=== PATIENT | female | born 1990 | race Caucasian/White ===

== ENCOUNTER 2019-08-08 10:04 | Emergency (ER) | payer OTHER ==
[2019-08-08 10:12] VITALS: TEMP 98.2; BMI 30.2
--- NOTE | 2019-08-08 11:02 | PDOC ---
History of Present Illness - General Chief Complaint: Vaginal Bleeding Stated Complaint: VAGINAL BLEEDING Time Seen by Provider: 08/08/19 10:42 History Source: Patient Exam Limitations: No Limitations - History of Present Illness Travel History: No Initial Comments: 08/08/19 10: [age]-year-old for presents to ED with vaginal spotting for the past 3 days along with left suprapubic cramping. Patient states is currently but unsure of gestational age. Patient LMP 06/09/19. patient with history of methotrexate injections left ectopic in 2017 requiring Methergine. Patient has mild left suprapubic mid suprapubic cramping. No other complaints. Timing/Duration: reports: constant Quality: reports: mild, cramping Abdominal Pain Onset Location: reports: suprapubic Pain Radiation: reports: no radiation Activities at Onset: reports: none Aggravating Factors: improves with: None Alleviating Factors: improves with: None Past History - Travel Traveled outside of the country in the last 30 days: No Close contact w/someone who was outside of country & ill: No - Past Medical History Allergies/Adverse Reactions: Allergies Allergy/AdvReac Type Severity Reaction Status Date / Time No Known Allergies Allergy Verified 08/08/19 10:10 Home Medications: Ambulatory Orders NK [No Known Home Medication] 08/08/19 COPD: No - Surgical History Abdominal Surgery: Yes (ectopic 2016) - Psycho Social/Smoking Cessation Hx Smoking History: Never smoked Patient Lives Alone: No Lives with/in: spouse/SO Review of Systems - Review of Systems Able to Perform ROS?: Yes Constitutional: No: Symptoms Reported ABD/GI: Yes: Abdominal cramping (left suprapubic) : Yes: Discharge (vag bleeding) Musculoskeletal: No: Symptoms Reported Integumentary: No: Symptoms Reported Neurological: No: Symptoms reported Endocrine: No: Symptoms Reported *Physical Exam - Vital Signs Last Vital Signs Temp Pulse Resp BP Pulse Ox 98.2 F 82 16 128/69 99 08/08/19 10:11 08/08/19 10:11 08/08/19 10:11 08/08/19 10:11 08/08/19 10:11 - Physical Exam General Appearance: Yes: Nourished, Appropriately Dressed. No: Apparent Distress HEENT: negative: Pale Conjunctivae Cardiovascular: positive: Regular Rhythm, Regular Rate. negative: Murmur Female Pelvic Exam: positive: vaginal bleeding (Scant red no clots) Gastrointestinal/Abdominal: positive: Soft, Tenderness (Left suprapubic) Integumentary: positive: Normal Color, Warm, Moist Neurologic: positive: Normal Mood/Affect, Motor Strength 5/5 (Ambulatory) ED Treatment Course - LABORATORY CBC & Chemistry Diagram: 08/08/19 11:04 08/08/19 11:04 - RADIOLOGY Radiology Studies Ordered: Category Date Time Status TRANSVAGINAL US PREG [US] Stat Ultrasound 08/08/19 10:56 Ordered Medical Decision Making - Medical Decision Making 08/08/19 11:04 Chief complaint: Vaginal spotting for the past 3 days associated with left suprapubic cramping. Patient with history of ectopic 2017 requiring IM injections. Patient has no other complaints at this time. LMP 06/09/2019 with positive home test and ultrasound done for this Exam: Left suprapubic tenderness. Mild vaginal bleeding Vital signs stable Plan: Labs, urine ultrasound ordered 08/08/19 12:04 Laboratory Tests 08/08/19 08/08/19 08/08/19 11:04 11:04 11:04 WBC 7.3 Hgb 12.9 Hct 38.5 Absolute Neuts (auto) 3.9 Sodium 139 Potassium 3.5 Chloride 107 Carbon Dioxide 26 Anion Gap 6 L BUN 8.3 Creatinine 0.5 L Random Glucose 85 AST 7 L ALT 18 Beta HCG, Quant Pending Urine Blood Urine Nitrite Ur Leukocyte Esterase Urine WBC (Auto) Urine RBC (Auto) Blood Type Antibody Screen 08/08/19 08/08/19 11:04 11:04 WBC Hgb Hct Absolute Neuts (auto) Sodium Potassium Chloride Carbon Dioxide Anion Gap BUN Creatinine Random Glucose AST ALT Beta HCG, Quant Urine Blood 3+ H Urine Nitrite Negative Ur Leukocyte Esterase Negative Urine WBC (Auto) 1 Urine RBC (Auto) 31 Blood Type Pending Antibody Screen Pending Ultrasound results pending 08/08/19 12:26 Ultrasound shows a single intrauterine gestational sac identified with a probable pole noted which ultrasound measures to equal 6 weeks 0 days. However no heart rate is identified. Pain no adnexal masses free fluid. Patient with a 1 cm simple cyst of the left ovary. Recommend clinical correlation including ultrasound and beta hCG. 08/08/19 12:44 Laboratory Tests 08/08/19 08/08/19 11:04 11:04 Beta HCG, Quant 956.7 Blood Type O POSITIVE Antibody Screen Negative Discharge - Discharge Information Problems reviewed: Yes Clinical Impression/Diagnosis: Threatened Condition: Good Disposition: HOME - Follow up/Referral - Patient Discharge Instructions Patient Printed Discharge Instructions: DI for Threatened Additional Instructions: Please follow-up with your [facility]OCI[facility] and/or return to ED in 48 hours for repeat blood work and/or ultrasound. May take Tylenol for discomfort. - Post Discharge Activity
[2019-08-08 11:28] LABS: BASO % 0.6 % (0-2.0); EOS % 3.3 % (0-4.5); HEMATOCRIT 38.5 % (32.4-45.2); HEMOGLOBIN 12.9 GM/dL (10.7-15.3); LYMPH % 37.8 % (8-40); MCH 28.4 pg (25.7-33.7); MCHC 33.4 g/dl (32.0-36.0); MEAN CELL VOLUME 85.2 fl (80-96); MEAN PLT VOLUME 7.7 fl (7.5-11.1); MONO % 4.7 % (3.8-10.2); NEUT % 53.6 % (42.8-82.8); PLATELET COUNT 195 K/MM3 (134-434); RBC 4.52 M/mm3 (3.60-5.2); RDW 13.8 % (11.6-15.6); WHITE BLOOD COUNT 7.3 K/mm3 (4.0-10.0)
[2019-08-08 11:47] LABS: EPI CELLS 1.3 /HPF (0-5/HPF); HYALINE CASTS 0 /lpf (0-8); URINE APPEARANCE CLEAR; URINE BACTERIA 42.1 /hpf (NEGATIVE); URINE BILIRUBIN NEGATIVE (NEGATIVE); URINE COLOR YELLOW; URINE GLUCOSE (UA) NEGATIVE (NEGATIVE); URINE KETONE NEGATIVE (NEGATIVE); URINE LEUK ESTERASE NEGATIVE (NEGATIVE); URINE NITRITE NEGATIVE (NEGATIVE); URINE PROTEIN NEGATIVE (NEGATIVE); URINE RBC 31 /hpf (0-4); URINE UROBILINOGEN 0.2 mg/dL (0.2-1.0); URINE WBC 1 /hpf (0-5)
[2019-08-08 11:54] LABS: ALBUMIN 3.8 g/dl (3.4-5.0); BILIRUBIN,TOTAL 0.5 mg/dL (0.2-1); BLOOD UREA NITROGEN 8.3 mg/dL (7-18); CALCIUM 9.3 mg/dL (8.5-10.1); CREATININE 0.5 mg/dL (0.55-1.3); POTASSIUM 3.5 mmol/L (3.5-5.1); TOT PROT 7.2 g/dl (6.4-8.2)
[2019-08-08 12:42] VITALS: BP 111/74; PULSE 70
== END 2019-08-08 12:56 | disposition home or self-care (01) ==
LOC: JER 10:04
DX: O26.891 Other specified pregnancy related conditions, first trimester (principal); O20.0 Threatened abortion; Z3A.01 Less than 8 weeks gestation of pregnancy
CPT/HCPCS: 36415; 76817-TC; 80053; 81003; 84702; 85025; 86850; 86900; 86901; 87086; 99282-25

== ENCOUNTER 2020-06-09 16:48 | Emergency (ER) | payer OTHER ==
[2020-06-09 17:00] VITALS: BP 122/76; PULSE 86; TEMP 98.8; BMI 31.1
--- NOTE | 2020-06-09 17:51 | PDOC ---
History of Present Illness - General Chief Complaint: Pain Stated Complaint: 4 WEEKS /ABDOMINAL PAIN Time Seen by Provider: 06/09/20 17:10 History Source: Patient Exam Limitations: No Limitations - History of Present Illness Initial Comments: 06/09/20 17:47 Patient is a 29-year-old female who presents to the ED with complaint of lower abdominal pain that started today. The patient states that she took 2 home tests which were positive so she came to the ED for evaluation. She is with 1 miscarriage in 2019 and one ectopic treated with me thotrexate in 2017. She states the ectopic was on the right but her tube was salvaged. She denies any dysuria or hematuria. She denies any vaginal bleeding. The patient states she was concerned because of her previous history. She states she is trying to get . She states her last period was on 05/12/2020. Past History - Medical History Allergies/Adverse Reactions: Allergies Allergy/AdvReac Type Severity Reaction Status Date / Time No Known Allergies Allergy Verified 06/09/20 16:55 Home Medications: Ambulatory Orders NK [No Known Home Medication] 08/08/19 COPD: No - Surgical History Abdominal Surgery: Yes (ectopic 2016) - Reproductive History Is Patient Now?: Yes (#): 2 Para: 0 Ectopic : Yes (2016) - Psycho-Social/Smoking History Smoking History: Never smoked Have you smoked in the past 12 months: No - Substance Abuse Hx (Audit-C & DAST Scrn) How often the patient has a drink containing alcohol: Monthly or less Number of drinks the patient has on a typical day: 1 or 2 How often the patient has six or more drinks on one occasion: Never Score: In Men: 4 or > Positive; In Women: 3 or > Positive: 1 Screen Result (Pos requires Nsg. Audit-10AR): Negative In the last yr the pt used illegal drug/Rx for NonMed reason: No Score: Yes response is considered Positive: 0 Screen Result (Positive result requires Nsg. DAST-10): Negative Review of Systems - Review of Systems Comments:: 06/09/20 17:49 - Review of Systems Able to Perform ROS?: Yes Constitutional: No: Fever, Chills, Loss of Appetite, Night Sweats, Weakness HEENTM: No: Eye Pain, Vision changes, Ear Pain, Throat Pain, Throat Swelling, Mouth Pain, Difficulty Swallowing Respiratory: No: Cough, Shortness of Breath, Wheezing, Sputum Production Cardiac (ROS): No: Chest Pain, Chest Tightness, Palpitations, Irregular Heart Beat, Edema ABD/GI: No: Nausea, Vomiting, Abdominal Pain, Diarrhea; positive: Lower abdominal pain with a positive test at home : No Dysuria, No Hematuria, No Frequency, No Urgency Musculoskeletal: No: Muscle Pain, Back Pain, Joint Pain, Muscle Weakness, Neck Pain Integumentary: No: Lesions, Rash Neurological: No: Headache, Numbness, Tingling, Weakness, Speech Difficulties *Physical Exam - Vital Signs Last Vital Signs Temp Pulse Resp BP Pulse Ox 98.8 F 86 18 122/76 100 06/09/20 16:55 06/09/20 16:55 06/09/20 16:55 06/09/20 16:55 06/09/20 16:55 - Physical Exam 06/09/20 17:50 - Physical Exam General Appearance: Nourished, Appropriately Dressed, No Distress HEENT: EOMI, Normal Voice, Hearing Grossly Normal Neck: Supple, No Lymphadenopathy (R), No Lymphadenopathy (L), No Rigidity, No Decreased range of motion Respiratory/Chest: Lungs Clear, Normal Breath Sounds. No Respiratory Distress, No Accessory Muscle Use Cardiovascular: Regular Rhythm, Regular Rate, S1, S2 Gastrointestinal/Abdominal: Normal Bowel Sounds, Soft. Non-tender, No Guarding, No Rebound, No Rigidity; no reproducible abdominal tenderness to palpation FURNACE CLERK: No blood appreciated in the vaginal vault. Os closed. No CMT. Mild suprapubic tenderness on bimanual exam without masses palpated. Adnexa nontender nonpalpable. Musculoskeletal: Normal Inspection. No Decreased Range of Motion Extremity: Normal Capillary Refill, Normal Inspection Integumentary: Normal Color, Dry. No Rash Neurologic: consumer recruiter II-XII NML intact, Fully Oriented, Alert, Normal Mood/Affect, Normal Response ED Treatment Course - LABORATORY CBC & Chemistry Diagram: 06/09/20 20:10 06/09/20 20:10 - ADDITIONAL ORDERS Additional order review: 06/09/20 19:18 Laboratory Tests 06/09/20 17:33 Urine Color Yellow Urine Appearance Clear Urine pH 8.0 D Ur Specific [place] 1.021 Urine Protein Negative Urine Glucose (UA) Negative Urine Ketones Trace H Urine Blood Negative Urine Nitrite Negative Urine Bilirubin Negative Urine Urobilinogen 1.0 Ur Leukocyte Esterase Negative Urine HCG, Qual Positive 06/09/20 21:15 Laboratory Tests 06/09/20 20:10 Beta HCG, Quant 269.9 Medical Decision Making - Medical Decision Making 06/09/20 17:50 Assessment: Patient is a 29-year-old female with lower abdominal pain with 2 positive tests today. Plan: -We will first confirm with a urine test -UA/urine culture/urine hCG -Will reassess 06/09/20 19:18 The patient has been made aware that her urinalysis is negative and her urine is positive. We will continue her work-up with lab works and an ultrasound for further evaluation and treatment. 06/09/20 20:29 Patient's ultrasound reads there is a fluid-filled structure in the uterus consistent with a gestational sac but no other signs of pole or yolk sac appreciated. The patient is pending her lab work. She is stable and has no complaints at this time. 06/09/20 21:13 The patient has been made aware that her beta-hCG is 269.9. She is also been made aware that this is too early to see anything on the ultrasound. The patient has been made aware that the ultrasound shows what appears to be a gestational sac which is very small. She is advised to return to the emergency department in 2 days to have only a repeat hormone level. She does not require a repeat ultrasound in 2 days. Discharge - Discharge Information Problems reviewed: Yes Clinical Impression/Diagnosis: Abdominal pain affecting Condition: Stable Disposition: HOME - Follow up/Referral Referrals: Liban Monet MD [Staff Physician] - Call tomorrow - Patient Discharge Instructions Patient Printed Discharge Instructions: DI for Abdominal Pain -- Early Additional Instructions: Get plenty of rest and drink plenty of fluids. Avoid any heavy lifting or strenuous activity. Avoid anything in the vagina including sexual intercourse until you are cleared by [facility]. You must return to the emergency department in 2 days for repeat hormone level. You do not require a repeat ultrasound in 2 days. Follow-up with [facility] early next week. - Post Discharge Activity Work/Back to School Note: Back to Work
[2020-06-09 18:37] LABS: URINE APPEARANCE CLEAR; URINE BILIRUBIN NEGATIVE (NEGATIVE); URINE COLOR YELLOW; URINE GLUCOSE (UA) NEGATIVE (NEGATIVE); URINE KETONE TRACE (NEGATIVE); URINE LEUK ESTERASE NEGATIVE (NEGATIVE); URINE NITRITE NEGATIVE (NEGATIVE); URINE PROTEIN NEGATIVE (NEGATIVE)
[2020-06-09] MEDS ORDERED: SODIUM CHLORIDE 1,000 ML IV STA (18:57)
[2020-06-09 20:22] LABS: BASO % 0.5 % (0-2.0); EOS % 1.2 % (0-4.5); HEMATOCRIT 42.3 % (32.4-45.2); HEMOGLOBIN 14.1 GM/dL (10.7-15.3); MCH 28.1 pg (25.7-33.7); MCHC 33.3 g/dl (32.0-36.0); MEAN CELL VOLUME 84.2 fl (80-96); MEAN PLT VOLUME 8.1 fl (7.5-11.1); MONO % 4.6 % (3.8-10.2); NEUT % 65.7 % (42.8-82.8); PLATELET COUNT 235 K/MM3 (134-434); RBC 5.03 M/mm3 (3.60-5.2); WHITE BLOOD COUNT 10.8 K/mm3 (4.0-10.0)
[2020-06-09 20:52] LABS: BILIRUBIN,TOTAL 0.5 mg/dL (0.2-1); BLOOD UREA NITROGEN 13.3 mg/dL (7-18); CREATININE 0.7 mg/dL (0.55-1.3); POTASSIUM 4.2 mmol/L (3.5-5.1); TOT PROT 8.1 g/dl (6.4-8.2)
--- OUTSIDE RECORDS SUMMARY | 2020-06-09 21:58 | XMS ---
:1990 Author Organization [facility] Support Name Relationship Address Phone SE, SELF-EMPLOYED Unavailable Unavailable Unavailable SE Unavailable Unavailable Unavailable BRIANNA CRAIG FATHER [address] [place] [address] Re-disclosure Warning The records that you are about to access may contain information from federally- assisted alcohol or drug abuse programs. If such information is present, then the following federally mandated warning applies: This information has been disclosed to you from records protected by federal confidentiality rules (42 CFR part 2). The federal rules prohibit you from making any further disclosure of this information unless further disclosure is expressly permitted by the written consent of the person to whom it pertains or as otherwise permitted by 42 CFR part 2. A general authorization for the release of medical or other information is NOT sufficient for this purpose. The Federal rules restrict any use of the information to criminally investigate or prosecute any alcohol or drug abuse patient.The records that you are about to access may contain highly sensitive health information, the redisclosure of which is protected by Article 27-F of the [facility] Public Health law. If you continue you may haveaccess to information: Regarding HIV / AIDS; Provided by facilities licensed or operated by the [facility] Office of Mental Health; or Provided by the [facility] Office for People With Developmental Disabilities. If such information is present, then the following [facility] mandated warning applies: This information has been disclosed to you from confidential records which are protected by state law. State law prohibits you from making any further disclosure of this information without the specific written consent of the person to whom it pertains, or as otherwise permitted by law. Any unauthorized further disclosure in violation of state law may result in a fine or snf sentence or both. A general authorization for the release of medical or other information is NOT sufficient authorization for further disclosure. Insurance Providers Payer name Policy type Policy ID Covered Covered libertarian's Policy P demond / Coverage libertarian ID relationship to Smith Inf ormation type smith AFFINITY [id number] MARLENA [id number] 000 HEALTH NON CAP Problems, Conditions, and Diagnoses Code Display Name Description Problem Type Effective Data Sour ce(s) Dates 616.10 VAGINITIS AND VAGINITIS Diagnosis 11/11/2018 JANIE (Gadiel alejandro VULVOVAGINITIS 10:07:52 AM Tony UNSPECIFIED [facility]) 079.98 UNSPECIFIED Chlamydial Diagnosis 11/11/2018 JANIE (Meaghan nt CHLAMYDIAL Infection NOS 10:07:52 AM Tony INFECTION [facility])
[2020-06-10 02:20] LABS: HCG,QUALITATIVE URINE Positive
== END 2020-06-09 21:30 | disposition home or self-care (01) ==
LOC: JER 16:48
PROC: 3E0337Z Introduction of Electrolytic and Water Balance Substance into Peripheral Vein, Percutaneous Approach (ICD-10-PCS; principal; 2020-06-09)
DX: O26.891 Other specified pregnancy related conditions, first trimester (principal)
CPT/HCPCS: 36415; 76817-TC; 80053; 81003; 84702; 84703; 85025; 86850; 86900; 86901; 87086; 87186; 99284-25

== ENCOUNTER 2020-06-11 17:11 | Emergency (ER) | payer OTHER ==
--- OUTSIDE RECORDS SUMMARY | 2020-06-11 17:22 | XMS ---
:1990 Author Organization [facility] Support Name Relationship Address Phone SE, SELF-EMPLOYED Unavailable Unavailable Unavailable SE Unavailable Unavailable Unavailable BRIANNA CRAIG STEP FATHER [address] [place] [address] BRIANNA CRAIG Other [address] [place] [address] Re-disclosure Warning The records that you are [...] is protected by Article 27-F of the [facility] Public Health law. If you continue you may haveaccess to information: Regarding HIV / AIDS; Provided by facilities licensed or operated by the [facility] Office of Mental Health; or Provided by the [facility] Office for People With Developmental Disabilities. If such information is present, then the following [facility] mandated warning applies: This information has [...] law may result in a fine or senior living sentence or both. A general authorization for the release of medical or other information is NOT sufficient authorization for further disclosure. Insurance Providers Payer name Policy type Policy ID Covered Covered democrat's Policy P demond / Coverage democrat ID relationship to Smith Inf ormation type smith AFFINITY [id number] 401 [facility] [id number] 000 HEALTH NON CAP Problems, Conditions, and Diagnoses Code Display Name Description Problem Type Effective Data Sour ce(s) Dates 616.10 VAGINITIS AND VAGINITIS Diagnosis 11/11/2018 JANIE (Gadiel alejandro VULVOVAGINITIS 10:07:52 AM Tony UNSPECIFIED [facility]) 079.98 UNSPECIFIED Chlamydial Diagnosis 11/11/2018 JANIE (Meaghan nt CHLAMYDIAL Infection NOS 10:07:52 AM Tnoy INFECTION [facility])
[2020-06-11 17:25] VITALS: BP 113/74; PULSE 84; TEMP 98.1; BMI 31.1
--- NOTE | 2020-06-11 17:31 | PDOC ---
History of Present Illness - General Chief Complaint: Revisit, Lab Variance Stated Complaint: LABS Time Seen by Provider: 06/11/20 17:23 History Source: Patient Exam Limitations: No Limitations - History of Present Illness Initial Comments: 06/11/20 17:26 Patient is a 29-year-old female who presents to the ED for repeat beta-hCG. She was seen 2 days ago and found to have a beta-hCG of 269. The patient had an ultrasound which showed a small structure in the uterus consistent with an early gestational sac. She states that the pain she was having 2 days ago has resolved. She denies any vaginal bleeding. She denies any fevers or chills. She denies any other complaints today. The patient is . She has had 1 miscarriage and 1 ectopic requiring methotrexate treatment. Past History - Medical History Allergies/Adverse Reactions: Allergies Allergy/AdvReac Type Severity Reaction Status Date / Time No Known Allergies Allergy Verified 06/09/20 16:55 Home Medications: Ambulatory Orders NK [No Known Home Medication] 08/08/19 COPD: No - Surgical History Abdominal Surgery: Yes (ectopic 2016) - Reproductive History Is Patient Now?: Yes (#): 2 Para: 0 Ectopic : Yes (2017) - Psycho-Social/Smoking History Smoking History: Never smoked Have you smoked in the past 12 months: No - Substance Abuse Hx (Audit-C & DAST Scrn) How often the patient has a drink containing alcohol: Never Score: In Men: 4 or > Positive; In Women: 3 or > Positive: 0 Screen Result (Pos requires Nsg. Audit-10AR): Negative Review of Systems - Review of Systems Comments:: 06/11/20 17:30 - Review of Systems Able to Perform ROS?: Yes Constitutional: No: Fever, Chills, Loss of Appetite, Night Sweats, Weakness; positive: Repeat beta-hCG quantitative HEENTM: No: Eye Pain, Vision changes, Ear Pain, Throat Pain, Throat Swelling, Mouth Pain, Difficulty Swallowing Respiratory: No: Cough, Shortness of Breath, Wheezing, Sputum Production Cardiac (ROS): No: Chest Pain, Chest Tightness, Palpitations, Irregular Heart Beat, Edema ABD/GI: No: Nausea, Vomiting, Abdominal Pain, Diarrhea : No Dysuria, No Hematuria, No Frequency, No Urgency Musculoskeletal: No: Muscle Pain, Back Pain, Joint Pain, Muscle Weakness, Neck Pain Integumentary: No: Lesions, Rash Neurological: No: Headache, Numbness, Tingling, Weakness, Speech Difficulties *Physical Exam - Vital Signs Last Vital Signs Temp Pulse Resp BP Pulse Ox 98.1 F 84 20 113/74 100 06/11/20 17:14 06/11/20 17:14 06/11/20 17:14 06/11/20 17:14 06/11/20 17:14 - Physical Exam 06/11/20 17:31 - Physical Exam General Appearance: Nourished, Appropriately Dressed, No Distress HEENT: EOMI, Normal Voice, Hearing Grossly Normal Neck: Supple, No Lymphadenopathy (R), No Lymphadenopathy (L), No Rigidity, No Decreased range of motion Respiratory/Chest: Lungs Clear, Normal Breath Sounds. No Respiratory Distress, No Accessory Muscle Use Cardiovascular: Regular Rhythm, Regular Rate, S1, S2 Gastrointestinal/Abdominal: Normal Bowel Sounds, Soft. Non-tender, No Guarding, No Rebound, No Rigidity Musculoskeletal: Normal Inspection. No Decreased Range of Motion Extremity: Normal Capillary Refill, Normal Inspection Integumentary: Normal Color, Dry. No Rash Neurologic: registrar nurses' registry II-XII NML intact, Fully Oriented, Alert, Normal Mood/Affect, Normal Response ED Treatment Course - ADDITIONAL ORDERS Additional order review: 06/11/20 18:28 Laboratory Tests 06/09/20 06/11/20 20:10 17:30 Beta HCG, Quant 269.9 417.6 Medical Decision Making - Medical Decision Making 06/11/20 17:31 Assessment: Patient is a 29-year-old female who presents to the ED for a repeat quantitative beta-hCG Plan: -Beta-hCG quantitative ordered -Will reassess 06/11/20 18:28 The patient has been made aware that her beta-hCG is 417 today. It was 269 two days ago and is up trending but not quite doubled in 2 days. The patient has been made aware that this number is slightly lower than anticipated but still uptrending. She has been made aware that she should follow-up with [facility] early next week for further evaluation and treatment. She does require a repeat ultrasound in 1 week. The patient has been given strict return precautions. She understands and agrees with this treatment plan and she is stable for discharge. Discharge - Discharge Information Problems reviewed: Yes Clinical Impression/Diagnosis: Qualifiers: Weeks of gestation: less than 8 weeks Qualified Code(s): Z3A.01 - Less than 8 weeks gestation of Condition: Stable Disposition: HOME - Follow up/Referral Referrals: Liban Monet MD [Staff Physician] - 2 Days - Patient Discharge Instructions Patient Printed Discharge Instructions: DI for Abdominal Pain -- Early Additional Instructions: Avoid any strenuous activity or heavy lifting. You should be on pelvic rest which includes no sexual activity or anything in the vagina. Be sure to follow-up with [facility] MACH[facility]TER, referral given, for further evaluation and treatment. You should have a repeat ultrasound within 1 week. Your hormone level is going up but has not quite doubled as anticipated. Return to the emergency department for severe abdominal pain, heavy vaginal bleeding, or any other worsening symptoms. - Post Discharge Activity Work/Back to School Note: Back to Work
== END 2020-06-11 18:34 | disposition home or self-care (01) ==
LOC: JERFT 17:11
DX: O02.81 Inappropriate change in quantitative human chorionic gonadotropin (hCG) in early pregnancy (principal); Z3A.01 Less than 8 weeks gestation of pregnancy
CPT/HCPCS: 36415; 84702; 99283-25

== ENCOUNTER 2021-06-09 06:39 | Inpatient (IN) | payer OTHER ==
[2021-06-09 07:37] VITALS: BMI 33.5
[2021-06-09] MEDS ORDERED: morphine SULFATE (PF) 1 MG/2 ML SYRINGE ONE (08:09)
[2021-06-09] MEDS ORDERED: CITRIC ACID/SODIUM CITRATE 30 ML UNIT-DOSE CUP PO ONE (08:13)
[2021-06-09] MEDS ORDERED: ELECTROLYTE-148 SOLN 500 ML IV ONE (08:13)
[2021-06-09] MEDS ORDERED: ELECTROLYTE-148 SOLN 1,000 ML IV SCH (08:15)
[2021-06-09] MEDS ORDERED: morphine SULFATE/PF 1 MG/2 ML (2cc Syringe - QUVA) EP ONE (08:20)
[2021-06-09] MEDS ORDERED: ceFAZolin SODIUM 1 GM VIAL ONE (09:00)
[2021-06-09] MEDS ORDERED: ONDANSETRON 4 MG/2 ML VIAL ONE (09:00)
[2021-06-09] MEDS ORDERED: PHENYLEPHRINE HCL 10 MG/1 ML SINGLE DOSE VIAL ONE (09:00)
[2021-06-09] MEDS ORDERED: KETOROLAC TROMETHAMINE 30 MG/1 ML VIAL ONE (09:00)
[2021-06-09] MEDS ORDERED: OXYTOCIN 10 UNIT/ML 10ML MDV ONE (09:00)
[2021-06-09] MEDS ORDERED: METHYLERGONOVINE MALEATE 0.2 MG/1 ML AMP IM PRN (09:01)
[2021-06-09] MEDS ORDERED: IBUPROFEN 800 MG/8 ML IJ IVPB PRN (09:01)
[2021-06-09] MEDS ORDERED: OXYTOCIN 20 UNITS in 0.9% NS 20 UNIT/1,000 ML INFUS.BAG IV ONE (09:10)
[2021-06-09] MEDS ORDERED: ACETAMINOPHEN INJECTION 100 ML IVPB ONE (09:10)
[2021-06-09] MEDS ORDERED: ONDANSETRON 4 MG/2 ML VIAL IVPUSH PRN (09:13)
[2021-06-09] MEDS ORDERED: ACETAMINOPHEN 1000 MG/100 ML VIAL IVPB ONE (09:14)
[2021-06-09] MEDS ORDERED: OXYTOCIN 20 UNITS in 0.9% NS 20 UNIT/1,000 ML INFUS.BAG IV SCH (09:15)
[2021-06-09] MEDS: PRENATAL VITAMINS W/ FOLIC ACID TABLET (FP) PO SCH (10:04)
[2021-06-09] MEDS: FERROUS SO4 325 MG TABLET (FP) PO SCH (19:10)
[2021-06-09] MEDS: SIMETHICONE 80 MG TAB.CHEW (FP) PO PRN (23:03)
[2021-06-09] MEDS: IBUPROFEN 600 MG TABLET (FP) PO PRN (23:03)
[2021-06-09] MEDS: ACETAMINOPHEN 325 MG TABLET (FP) PO PRN (23:03)
[2021-06-10] MEDS: SIMETHICONE 80 MG TAB.CHEW (FP) PO PRN ×4 (05:36→21:17)
[2021-06-10] MEDS: ACETAMINOPHEN 325 MG TABLET (FP) PO PRN (05:36)
[2021-06-10] MEDS: IBUPROFEN 600 MG TABLET (FP) PO PRN ×4 (05:36→21:16)
[2021-06-10] MEDS: FERROUS SO4 325 MG TABLET (FP) PO SCH ×2 (07:46→17:02)
[2021-06-10 08:30] LABS: BASO % 0.4 % (0-2.0); HEMATOCRIT 27.3 % (32.4-45.2); HEMOGLOBIN 9.2 GM/dL (10.7-15.3); LYMPH % 27.2 % (8-40); MCH 27.3 pg (25.7-33.7); MCHC 33.6 g/dl (32.0-36.0); MEAN CELL VOLUME 81.3 fl (80-96); MEAN PLT VOLUME 8.9 fl (7.5-11.1); MONO % 4.1 % (3.8-10.2); NEUT % 67.3 % (42.8-82.8); PLATELET COUNT 124 10^3/uL (134-434); RBC 3.36 M/mm3 (3.60-5.2); RDW 15.9 % (11.6-15.6); WHITE BLOOD COUNT 8.5 K/mm3 (4.0-10.0)
[2021-06-10] MEDS ORDERED: BISACODYL 10 MG SUPP.RECT RC PRN (09:01)
[2021-06-10] MEDS: PRENATAL VITAMINS W/ FOLIC ACID TABLET (FP) PO SCH (09:15)
[2021-06-10] MEDS ORDERED: FLU VACC QS2021-22(6MOS UP)/PF 60 MCG/0.5 ML SYRINGE IM ONE (10:00)
[2021-06-10] MEDS ORDERED: DIPHTH,PERTUSS(ACELL),TET 0.5 ML DISP.SYRIN IM ONE (10:00)
[2021-06-11] MEDS: oxyCODONE HCL 5 MG TABLET PO PRN (02:59)
[2021-06-11] MEDS: SIMETHICONE 80 MG TAB.CHEW (FP) PO PRN ×4 (03:00→19:27)
[2021-06-11] MEDS: PRENATAL VITAMINS W/ FOLIC ACID TABLET (FP) PO SCH (09:09)
[2021-06-11] MEDS: IBUPROFEN 600 MG TABLET (FP) PO PRN ×3 (09:09→19:24)
[2021-06-11] MEDS: FERROUS SO4 325 MG TABLET (FP) PO SCH ×2 (09:09→17:03)
[2021-06-12] MEDS: SIMETHICONE 80 MG TAB.CHEW (FP) PO PRN ×2 (06:06→09:25)
[2021-06-12] MEDS: oxyCODONE HCL 5 MG TABLET PO PRN (06:06)
[2021-06-12 07:54] LABS: BASO % 0.3 % (0-2.0); EOS % 1.5 % (0-4.5); HEMATOCRIT 24.9 % (32.4-45.2); HEMOGLOBIN 8.3 GM/dL (10.7-15.3); LYMPH % 16.6 % (8-40); MCH 27.4 pg (25.7-33.7); MCHC 33.5 g/dl (32.0-36.0); MEAN CELL VOLUME 81.8 fl (80-96); MEAN PLT VOLUME 8.1 fl (7.5-11.1); MONO % 4.1 % (3.8-10.2); NEUT % 77.5 % (42.8-82.8); PLATELET COUNT 148 10^3/uL (134-434); RBC 3.04 M/mm3 (3.60-5.2); WHITE BLOOD COUNT 6.7 K/mm3 (4.0-10.0)
[2021-06-12] MEDS: IBUPROFEN 600 MG TABLET (FP) PO PRN (09:24)
[2021-06-12] MEDS: PRENATAL VITAMINS W/ FOLIC ACID TABLET (FP) PO SCH (09:24)
[2021-06-12] MEDS: FERROUS SO4 325 MG TABLET (FP) PO SCH (09:24)
[2021-06-12 11:17] VITALS: BP 104/69; PULSE 100; TEMP 98.4
== END 2021-06-12 11:30 | disposition home or self-care (01) | DRG 540 ==
LOC: JLDR 06:39 → J3W 10:20
PROVIDERS: ADMIT Obstetrics & Gynecology; ATTEND Obstetrics & Gynecology
PROC: 10D00Z1 Extraction of Products of Conception, Low, Open Approach (ICD-10-PCS; principal; 2021-06-09)
DX: O36.63X0 Maternal care for excessive fetal growth, third trimester, not applicable or unspecified (principal); O99.213 Obesity complicating pregnancy, third trimester; Z3A.39 39 weeks gestation of pregnancy; Z37.0 Single live birth
CPT/HCPCS: 36415; 85025; 88307-TC; 90686; 90715; C9803; G0008; J0131; U0003; U0005

== ENCOUNTER 2022-11-20 08:00 | Inpatient (IN) | payer OTHER ==
[2022-11-20] MEDS ORDERED: ELECTROLYTE-148 SOLN 1,000 ML IV ONE (08:55)
[2022-11-20] MEDS ORDERED: CITRIC ACID/SODIUM CITRATE 30 ML UNIT-DOSE CUP PO ONE (09:11)
[2022-11-20] MEDS ORDERED: ELECTROLYTE-148 SOLN 1,000 ML IV SCH ×2 (09:15)
[2022-11-20 09:55] VITALS: BMI 32.1
[2022-11-20] MEDS ORDERED: OXYTOCIN 20 UNITS in 0.9% NS 20 UNIT/1,000 ML INFUS.BAG IV ONE (10:11)
[2022-11-20] MEDS ORDERED: SODIUM CHLORIDE 0.9% P/F 10 ML VIAL IJ ONE (10:13)
[2022-11-20] MEDS ORDERED: morphine SULFATE/PF 1 MG/2 ML (2cc Syringe - QUVA) ONE (10:13)
[2022-11-20] MEDS ORDERED: ONDANSETRON 4 MG/2 ML VIAL ONE (10:13)
[2022-11-20] MEDS ORDERED: ceFAZolin SODIUM 1 GM VIAL ONE (10:13)
[2022-11-20] MEDS ORDERED: KETOROLAC TROMETHAMINE 30 MG/1 ML VIAL ONE (10:13)
[2022-11-20] MEDS ORDERED: ePHEDrine SULFATE 50 MG/1 ML AMPULE ONE (10:14)
[2022-11-20] MEDS ORDERED: FENTANYL CITRATE/PF 50 MCG/ML VIAL ONE (10:14)
[2022-11-20 10:17] LABS: BASO % 0.3 % (0-2.0); EOS % 0.6 % (0-4.5); HEMATOCRIT 34.3 % (32.4-45.2); HEMOGLOBIN 11.5 GM/dL (10.7-15.3); LYMPH % 18.7 % (8-40); MCH 25.7 pg (25.7-33.7); MCHC 33.4 g/dl (32.0-36.0); MEAN CELL VOLUME 76.8 fl (80-96); MEAN PLT VOLUME 8.1 fl (7.5-11.1); MONO % 4.9 % (3.8-10.2); NEUT % 75.5 % (42.8-82.8); PLATELET COUNT 150 10^3/uL (134-434); RBC 4.47 M/mm3 (3.60-5.2); RDW 15.7 % (11.6-15.6); WHITE BLOOD COUNT 9.3 K/mm3 (4.0-10.0)
[2022-11-20 10:40] LABS: BLOOD UREA NITROGEN 7.2 mg/dL (7-18); CALCIUM 9.4 mg/dL (8.5-10.1)
[2022-11-20] MEDS ORDERED: ONDANSETRON 4 MG/2 ML VIAL IVPUSH PRN (10:40)
[2022-11-20] MEDS ORDERED: ACETAMINOPHEN 1000 MG/100 ML BAG IVPB PRN (10:41)
[2022-11-20 10:43] LABS: ACTIVATED PTT 26.7 SECONDS (25.2-36.5); CREATININE 0.4 mg/dL (0.55-1.3); INR 1.03 (0.83-1.09)
[2022-11-20 12:51] LABS: CORD BASE EXCESS -3.3 mmol/L (0-2); CORD HCO3 20.9 mmHg (20-29); CORD PCO2 35.4 mmHg (30-78); CORD pH 7.39 (7.14-7.44)
[2022-11-20 12:53] LABS: CORD BASE EXCESS -4.1 mmol/L (0-2); CORD HCO3 20.8 mmHg (20-29); CORD PCO2 37.5 mmHg (30-78); CORD pH 7.361 (7.14-7.44)
[2022-11-20] MEDS ORDERED: ACETAMINOPHEN 325 MG TABLET (FP) PO PRN (13:24)
[2022-11-20] MEDS ORDERED: METHYLERGONOVINE MALEATE 0.2 MG/1 ML AMP IM PRN (13:24)
[2022-11-20] MEDS: OXYTOCIN 20 UNITS in 0.9% NS 20 UNIT/1,000 ML INFUS.BAG IV SCH ×2 (15:00→23:25)
[2022-11-20 15:45] VITALS: RESP 16
[2022-11-20] MEDS: IBUPROFEN 800 MG/8 ML IJ IVPB PRN (16:16)
[2022-11-20] MEDS: SIMETHICONE 80 MG TAB.CHEW (FP) PO PRN (20:11)
[2022-11-20] MEDS: CEFAZOLIN 1 GM in DEXTROSE 5%-WATER - 50 ML IVPB SCH (20:11)
[2022-11-21] MEDS ORDERED: oxyCODONE HCL 5 MG TABLET PO PRN (01:26)
[2022-11-21] MEDS: CEFAZOLIN 1 GM in DEXTROSE 5%-WATER - 50 ML IVPB SCH ×2 (04:00→12:54)
[2022-11-21] MEDS: SIMETHICONE 80 MG TAB.CHEW (FP) PO PRN ×3 (04:01→21:27)
[2022-11-21] MEDS: IBUPROFEN 800 MG/8 ML IJ IVPB PRN (05:45)
[2022-11-21] MEDS: ENOXAPARIN NA (PORCINE) 40 MG/0.4 ML DISP.SYRIN SQ SCH (10:10)
[2022-11-21] MEDS: IBUPROFEN 600 MG TABLET (FP) PO PRN ×3 (10:10→21:27)
[2022-11-21 10:14] LABS: BASO % 0.3 % (0-2.0); EOS % 0.8 % (0-4.5); HEMATOCRIT 28.4 % (32.4-45.2); HEMOGLOBIN 9.3 GM/dL (10.7-15.3); LYMPH % 18.6 % (8-40); MCH 25.3 pg (25.7-33.7); MCHC 32.8 g/dl (32.0-36.0); MEAN CELL VOLUME 77.2 fl (80-96); MEAN PLT VOLUME 8.1 fl (7.5-11.1); MONO % 5.3 % (3.8-10.2); PLATELET COUNT 132 10^3/uL (134-434); RBC 3.68 M/mm3 (3.60-5.2); RDW 15.7 % (11.6-15.6); WHITE BLOOD COUNT 8.1 K/mm3 (4.0-10.0)
[2022-11-21] MEDS ORDERED: BISACODYL 10 MG SUPP.RECT RC PRN (13:26)
[2022-11-22] MEDS: IBUPROFEN 600 MG TABLET (FP) PO PRN ×3 (01:02→16:39)
[2022-11-22] MEDS: SIMETHICONE 80 MG TAB.CHEW (FP) PO PRN ×4 (01:02→19:43)
[2022-11-22] MEDS: ENOXAPARIN NA (PORCINE) 40 MG/0.4 ML DISP.SYRIN SQ SCH (09:35)
[2022-11-23] MEDS: IBUPROFEN 600 MG TABLET (FP) PO PRN (05:57)
[2022-11-23] MEDS: SIMETHICONE 80 MG TAB.CHEW (FP) PO PRN (05:57)
[2022-11-23 06:21] VITALS: TEMP 97.8
[2022-11-23 07:45] LABS: BASO % 0.5 % (0-2.0); EOS % 1.6 % (0-4.5); HEMATOCRIT 30.2 % (32.4-45.2); LYMPH % 24.3 % (8-40); MCH 26.3 pg (25.7-33.7); MCHC 33.2 g/dl (32.0-36.0); MEAN CELL VOLUME 79.2 fl (80-96); MEAN PLT VOLUME 7.9 fl (7.5-11.1); MONO % 4.8 % (3.8-10.2); NEUT % 68.8 % (42.8-82.8); PLATELET COUNT 170 10^3/uL (134-434); RBC 3.81 M/mm3 (3.60-5.2); RDW 15.8 % (11.6-15.6); WHITE BLOOD COUNT 8.3 K/mm3 (4.0-10.0)
[2022-11-23 09:22] VITALS: BP 104/62; PULSE 96
[2022-11-23] MEDS: ENOXAPARIN NA (PORCINE) 40 MG/0.4 ML DISP.SYRIN SQ SCH (09:46)
== END 2022-11-23 11:53 | disposition home or self-care (01) | DRG 540 ==
LOC: JDEL 08:00 → JLDR 09:07 → J3W 14:20
PROVIDERS: ADMIT Obstetrics & Gynecology; ATTEND Obstetrics & Gynecology
PROC: 10D00Z1 Extraction of Products of Conception, Low, Open Approach (ICD-10-PCS; principal; 2022-11-20)
DX: O34.211 Maternal care for low transverse scar from previous cesarean delivery (principal); O32.8XX0 Maternal care for other malpresentation of fetus, not applicable or unspecified; O69.89X0 Labor and delivery complicated by other cord complications, not applicable or unspecified; O99.214 Obesity complicating childbirth; E66.9 Obesity, unspecified; Z3A.39 39 weeks gestation of pregnancy; Z37.0 Single live birth
CPT/HCPCS: 36415; 36600; 80048; 82803; 85025; 85610; 85730; 86780; 86850; 86900; 86901; 88307-TC; C9803-CS; U0003; U0005

== ENCOUNTER 2024-06-10 17:37 | Emergency (ER) | payer OTHER ==
[2024-06-10 17:47] VITALS: BP 117/80; PULSE 102; RESP 18; TEMP 99.1; BMI 32.5
== END 2024-06-10 19:02 | disposition home or self-care (01) ==
LOC: JER 17:37
DX: K62.5 Hemorrhage of anus and rectum (principal); K64.4 Residual hemorrhoidal skin tags; R07.89 Other chest pain
CPT/HCPCS: 93005; 93010; 99283-25